=== PATIENT | male | born 1955 | race Caucasian/White ===

== ENCOUNTER 2023-11-15 10:58 | Emergency (ER) | payer MEDICARE, BC, SELFPAY ==
[2023-11-15 11:05] VITALS: BP 157/90
[2023-11-15 11:23] LABS: % Basophils 1.1 % (0-2); % Immature Granulocytes 0.2 % (0-0.5); % Lymphocytes 28.1 % (20.5-51.1); % Monocytes 13.8 % (1.7-9.3); % Neutrophils 53.8 % (42.2-75.2); Absolute Basophils 0.1 10^3/uL (0-0.2); Absolute Eosinophils 0.1 10^3/uL (0-0.7); Absolute Lymphocytes 1.3 10^3/uL (1.2-3.4); Absolute Monocytes 0.7 10^3/uL (0.1-0.6); Absolute Neutrophils 2.5 10^3/uL (1.4-6.5); Hematocrit 51.7 % (39.0-52.0); Hemoglobin 16.5 g/dL (13.0-18.0); Mean Corp Hgb Conc. 31.9 g/dL (33.0-37.0); Mean Corpuscular Hgb 28.2 pg (27.0-31.0); Mean Corpuscular Volume 88.2 fL (80.0-94.0); Mean Platelet Volume 8.9 fL (7.4-10.4); Nucleated Red Blood Cells % 0 % (-); Platelet Count 197 10^3/uL (130-400); Red Blood Cell Count 5.86 10^6/uL (4.70-6.10); Red Cell Dist. Width 13.2 % (11.5-14.5); White Blood Cell Count 4.7 10^3/uL (4.8-10.8)
[2023-11-15 11:43] LABS: ALT (SGPT) 57 U/L (0-50); AST (SGOT) 51 U/L (17-59); Albumin 4.4 g/dl (3.5-5.0); Alkaline Phosphatase 66 U/L (38-126); Blood Urea Nitrogen 16 mg/dl (9-20); Calcium 9.8 mg/dl (8.4-10.2); Carbon Dioxide 27 mmol/L (22-30); Chloride 101 mmol/L (98-107); Glucose 116 mg/dl (70-99); Potassium 4.4 mmol/L (3.5-5.1); Sodium 133 mmol/L (135-145); Total Bilirubin 0.8 mg/dl (0.2-1.3); eGFR > 60.00
--- NOTE | 2023-11-15 14:09 | ED.GENMED ---
History of Present Illness
General
Chief Complaint: Numbness
Source: patient
Time Seen by Provider: 11/15/23 13:43
Travel History
Have you had any contact with someone who has COVID-19?: No
Do you have any symptoms of coronavirus? Fever > 100 degrees, chills, cough, shortness of breath, sore throat, loss of taste or smell, muscle aches, or headache?: No
History of Present Illness
History of Present Illness:
68-year-old male with past medical history of hyperlipidemia and BPH presenting to the emergency department for evaluation after he has been getting worked up by his primary care provider as an outpatient due to lower extremity weakness that started
in his right foot about 2 or 3 months ago, left foot about 1 month ago. Patient's primary care provider ordered an MRI of the lumbar spine but over the last few days patient has experienced some urinary incontinence stating that he did not know
that he was urinating the bed until he woke up and this morning his told him he seemed very confused, not able to answer questions and patient forgot what day it was and was unable to remember until he looked at his phone. Patient also notes
that he seems to be urinating more frequently than he usually would. He decided to come to the ER today as he states he is not really sure what is happening. He does note in about a 4-month. He has fallen 3 times which is very atypical for him.
He notes that he is normally very active and otherwise healthy. He denies any headaches, visual changes, vomiting, focal weakness or numbness, chest pain or shortness of breath, abdominal pain.
Past History
Past History
ED Past Medical History: Hypercholesterolemia
ED Past Surgical History: Orthopedic
Social History
Tobacco: Non-smoker
Alcohol: Occasional
Drug: None
Personal:
Living: with family
Review of Systems
Review of Systems
All Other Systems: ROS reviewed and negative except as documented in HPI and ROS
Phy Exam
Physical Exam
Physical Exam:
GENERAL: Alert , in no apparent distress
EYE: Clear conjunctiva, pupils 3 mm bilateral
NECK: Supple
ENT: o/p clr, mmm.
CARDIAC: Regular rate and rhythm .
LUNGS: Clear breath sounds bilaterally, no acute respiratory distress, no wheezes/rales/rhonchi
ABDOMEN: Soft, without focal tenderness, no r/g, no cvat
NEUROLOGICAL: Alert and oriented, no focal neuro deficits, is ambulatory with steady gait however patient with short strides and somewhat slower
SKIN: Warm and dry, skin intact.
MUSCULOSKELETAL: No edema, well perfused.
PSYCH: Normal and appropriate interaction.
Scores
Heart Failure Risk
Heart Failure Risk Score: Not Applicable
Heart Score for Chest Pain Patients
STEMI patient?: Not applicable
Withdrawal Assessment of Alcohol
Withdrawal Assessment Completed?: Not applicable
Course
Orders/Labs/Results
Orders:
Orders
11/15/23 11:09
CT Head W/o Iv Contrast Urgent
Comment:
Reason For Exam: b/l leg numbness and intermit disoriented
11/15/23 11:13
Complete Blood Count/With Diff Urgent
Comprehensive Metabolic Panel Urgent
11/15/23 14:49
Urinalysis Reflex To Culture Urgent
Date Specimen was Collected: 11/15/23
Time Specimen was Collected: 14:48
Abnormal Lab Results
11/15/23
11:13
WBC 4.7 L 10^3/uL
(4.8-10.8)
MCHC 31.9 L g/dL
(33.0-37.0)
Absolute Monos (auto) 0.7 H 10^3/uL
(0.1-0.6)
Monocytes % 13.8 H %
(1.7-9.3)
Sodium 133 L mmol/L
(135-145)
Creatinine 0.6 L mg/dL
(0.7-1.3)
Glucose 116 H mg/dl
(70-99)
ALT 57 H U/L
(0-50)
11/15/23 11:13
11/15/23 11:13
Vital Signs
Initial and Last Documented VS:
Initial Vital Signs
Temp Pulse Resp BP Pulse Ox
98.3 F 85 16 157/90 98
11/15/23 11:05 11/15/23 11:05 11/15/23 11:05 11/15/23 11:05 11/15/23 11:05
Last Documented Vital Signs
Temp Pulse Resp BP Pulse Ox
98.3 F 85 16 157/90 98
11/15/23 11:05 11/15/23 11:05 11/15/23 11:05 11/15/23 11:05 11/15/23 11:05
MDM/Problems Addressed
Differential Diagnosis Includes:
UTI, BPH, hydrocephalus, electrolyte disturbance
MDM/Problems Addressed:
68-year-old male presenting emergency department for gait instability, urinary incontinence and today stated he was confused however patient is only here in the ER with himself he is able to give a good history. Mild hypertension noted in
triage. Triage ordered labs and patient also had a head CT ordered. Head CT was concerning for new finding of normal pressure hydrocephalus. I did perform a bladder scan at the bedside after patient had urinated which did not show any urinary
retention. Will discuss case with neurosurgery to help determine further treatment plan and disposition.
*Radiology
Radiology exam reviewed: radiology read reviewed
*Pulse Oximetry
Patient hypoxic: no
*Critical Care Note
Total Time (30-74mins, 75-104mins- exclusive of procedures): Not Applicable
Data Reviewed
Review of Other/Old Records Reveals: Labs and Records
Patient Management
Discussion with other providers: PCP and Revenue Inspector
Escalation/DeEscalation of care consider admission/obs:
I discussed the case with on-call neurosurgeon, Dr. Wilson, he states patient can follow-up with neurology as an outpatient and they can be consulted as needed. Neurology is aware and state that patient should call the office to schedule
follow-up. I also contacted patient's primary care provider who had sent the patient to the emergency department and discussed the findings. He will call the patient later tonight to go over further treatments and test needed. Patient feels
comfortable being discharged home. Aware of return precautions to the ER.
ED Attending Note
-
Portions of this chart may have been created with voice recognition software.� Occasional wrong word or��sound alike� substitutions may have occurred due to the inherent limitations of voice recognition software.
Discharge Plan
Departure
Patient Disposition: Home (Routine Discharge)
Date of Disposition: 11/15/23
Time of Disposition: 14:38
Patient with high blood pressure during this ER visit?: Yes
Discharge Problem:
Normal pressure hydrocephalus
Instructions: Hydrocephalus (DC)
Referrals:
Andrea Murray DO [Family Provider] -
Deshawn Wilson DO [Active] - (Neurosurgeon)
Andrea Dunlap MD [Active] - (Neurologist)
Interventions
Interventions:
*Risk Screen - Suicide Last Done: 11/15/23 15:03
*General Assessment Last Done: 11/15/23 15:03
*Neglect/Abuse Screening Last Done: 11/15/23 15:03
*ED COVID-19 Vaccine History Last Done: 11/15/23 15:03
*Nursing Disposition Last Done: 11/15/23 15:03
ED- Neurological Assessment Last Done: 11/15/23 14:59
Discharge Date and Time
Discharge Date/Time: 11/15/23 15:05
Print Language: SYRIAC
[2023-11-15 15:31] LABS: Urine Albumin Negative (Neg - Trace); Urine Bilirubin Negative (Negative); Urine Character Clear (Clear); Urine Color Yellow; Urine Glucose Negative (Negative); Urine Ketone Negative (Negative); Urine Leukocyte Negative (Negative); Urine Nitrite Negative (Negative); Urine Occult Blood Negative (Negative); Urine Urobilinogen Negative (Neg - 1+)
== END 2023-11-15 15:05 | disposition home or self-care (01) ==
LOC: EMR 10:58
PROVIDERS: Physician Assistant Medical; EMERGENCY PHYSICIAN Emergency Medicine; FAMILY PHYSICIAN Family Medicine
DX: G91.2 (Idiopathic) normal pressure hydrocephalus (principal); R03.0 Elevated blood-pressure reading, without diagnosis of hypertension; N40.1 Benign prostatic hyperplasia with lower urinary tract symptoms; R32 Unspecified urinary incontinence; E78.00 Pure hypercholesterolemia, unspecified; R26.89 Other abnormalities of gait and mobility; R41.0 Disorientation, unspecified
CPT/HCPCS: 99284; 70450; 80053; 81003; 85025

== ENCOUNTER → 2023-11-19 10:36 | Outpatient (REF) | payer MEDICARE, BC, SELFPAY | LOC: PAVMRI 10:36 | PROVIDERS: ATTENDING PHYSICIAN Physician Assistant Medical | DX: R29.898 Other symptoms and signs involving the musculoskeletal system (principal); R20.0 Anesthesia of skin; R20.2 Paresthesia of skin | CPT/HCPCS: 72148 ==

== ENCOUNTER → 2024-01-24 08:07 | Outpatient (REF) | payer MEDICARE, BC, SELFPAY | LOC: PAVMRI 08:07 | PROVIDERS: ATTENDING PHYSICIAN Psychiatry & Neurology Neurology; FAMILY PHYSICIAN Family Medicine | DX: G91.0 Communicating hydrocephalus (principal) | CPT/HCPCS: 70553; A9575 ==

== ENCOUNTER 2024-01-24 15:38 | Emergency (ER) | payer MEDICARE, BC, SELFPAY ==
[2024-01-24 15:53] VITALS: BP 149/92
[2024-01-24 16:33] VITALS: BMI 29.0
--- NOTE | 2024-01-24 16:35 | ED.CVA ---
History of Present Illness
General
Chief Complaint: CVA/TIA Symptoms
Time Seen by Provider: 01/24/24 16:26
Onset of Stroke Symptoms
Onset of symptoms known: No
Time pt last seen normal is known: No
Travel History
Have you had any contact with someone who has COVID-19?: No
Do you have any symptoms of coronavirus? Fever > 100 degrees, chills, cough, shortness of breath, sore throat, loss of taste or smell, muscle aches, or headache?: No
History of Present Illness
History of Present Illness:
68-year-old male presents to the emergency department for evaluation of abnormal MRI. Patient had an MRI this morning as a part of a workup for chronic ongoing balance issues with a suspicion for normal pressure hydrocephalus. The MRI was
originally ordered approximately 1 month ago. MRI revealed an acute infarct in the left anterior cerebellar hemisphere as well as an acute infarct in the periventricular medial left temporal lobe. Patient denies any acute change to his ongoing
balance issues, reports no chest pain, shortness of breath numbness, speech difficulty, vision changes. Does have history of hyperlipidemia for which he takes a statin.
Past History
Past History
ED Past Medical History: Hypercholesterolemia
ED Past Surgical History: Orthopedic
Social History
Tobacco: Non-smoker
Alcohol: Occasional
Drug: None
Personal:
Living: with family
Review of Systems
Review of Systems
Allergies reviewed?: Yes
All Other Systems: ROS reviewed and negative except as documented in HPI and ROS
Phy Exam
Physical Exam
Physical Exam:
GEN: Well appearing, NAD, WDWN
HEENT: Oral mucosa moist, no scleral icterus, no nasal congestion
Cardiac: Regular rate
Lung: No respiratory distress, no tachypnea
MSK: No gross deformity or injuries
Skin: Good color, no pallor or jaundice, no rashes
Neuro: AO x3; CN II-XII grossly intact. BUE strength 5/5 in all zavala, sensation intact and symmetric. BLE strength 5/5 in all zavala, sensation intact and symmetric
Psych: Calm, cooperative
Course
Orders/Labs/Results
Orders:
Orders
01/24/24 15:58
EKG [Electrocardiogram (*1)] Urgent
Reason for Study: TIA/Stroke
01/24/24 15:59
EKG- Treatment ONCE
01/24/24 16:50
Neck Angio w/wo Contrast CT [CT Neck Angio W/wo Iv Contrast] Urgent
Comment:
Reason For Exam: stroke
Aspirin 325 mg PO NOW STA
Clopidogrel Bisulfate [Plavix] 300 mg PO NOW STA
01/24/24 16:58
Complete Blood Count/With Diff Urgent
Comprehensive Metabolic Panel Urgent
Abnormal Lab Results
01/24/24
16:58
Absolute Monos (auto) 0.7 H 10^3/uL
(0.1-0.6)
Monocytes % 12.5 H %
(1.7-9.3)
Creatinine 0.6 L mg/dL
(0.7-1.3)
Glucose 104 H mg/dl
(70-99)
ALT 58 H U/L
(0-50)
01/24/24 16:58
01/24/24 16:58
Vital Signs
Initial and Last Documented VS:
Initial Vital Signs
Temp Pulse Resp BP Pulse Ox
98.3 F 70 18 149/92 96
01/24/24 15:53 01/24/24 15:53 01/24/24 15:53 01/24/24 15:53 01/24/24 15:53
Last Documented Vital Signs
Temp Pulse Resp BP Pulse Ox
98.3 F 77 19 143/91 98
01/24/24 15:53 01/24/24 17:39 01/24/24 17:39 01/24/24 18:29 01/24/24 16:33
MDM/Problems Addressed
MDM/Problems Addressed:
I reviewed the clinical course and imaging findings with neurology on-call who recommend we proceed with carotid imaging, due to the time of day we will obtain a CT angiogram of the neck. Given that this shows no signs of significant carotid
stenosis the patient be discharged on dual antiplatelet therapy for 21 days. He is already on a statin. Will follow-up as an outpatient with neurology for further discussion
Comment
Comment:
EKG independently interpreted by me shows normal sinus rhythm at a rate of [address] changes concerning for ischemia, significant patient motion in V1 limits interpretation
*Critical Care Note
Total Time (30-74mins, 75-104mins- exclusive of procedures): Not Applicable
ED Attending Note
-
Portions of this chart may have been created with voice recognition software.� Occasional wrong word or��sound alike� substitutions may have occurred due to the inherent limitations of voice recognition software.
Discharge Plan
Departure
Patient Disposition: Home (Routine Discharge)
Date of Disposition: 01/24/24
Time of Disposition: 18:15
Patient with high blood pressure during this ER visit?: No
Discharge Problem:
Acute stroke due to ischemia
Instructions: Stroke (DC)
Prescriptions:
New
aspirin 81 mg capsule
81 mg PO DAILY Qty: 30 0RF
clopidogrel [Plavix] 75 mg tablet
75 mg PO DAILY 21 Days Qty: 21 0RF
No Action
ibuprofen 200 mg Tablet
800 mg PO DAILYPRN PRN (Reason: strenuous outdoor activity)
rosuvastatin 10 mg Tablet
10 mg PO DAILY
Referrals:
Andrea Murray DO [Family Provider] -
Andrea Dunlap MD [Active] - Call in 1-3 days for appt
Activity Restrictions/Additional Instructions:
Follow-up with Dr. Kemp within the next 2 to 3 weeks
You will be taking aspirin and Plavix together for the next 21 days. Do not use any ehed-aoo-bevjyxk anti-inflammatory medications during this time due to increased bleeding risk, this includes ibuprofen/Advil/Motrin/naproxen/Aleve
Interventions
Interventions:
*Risk Screen - Suicide Last Done: 01/24/24 15:56
*General Assessment Last Done: 01/24/24 15:56
*Neglect/Abuse Screening Last Done: 01/24/24 15:56
ED- Fall Risk Assessment Last Done: 01/24/24 18:30
*ED COVID-19 Vaccine History Last Done: 01/24/24 16:33
*Nursing Disposition Last Done: 01/24/24 18:30
ED- Pulmonary Assessment Last Done: 01/24/24 16:33
ED- Neurological Assessment Last Done: 01/24/24 16:33
ED- Cardiac Assessment Last Done: 01/24/24 16:33
ED Swallowing Screen Last Done: 01/24/24 16:50
Discharge Date and Time
Discharge Date/Time: 01/24/24 18:30
Print Language: AZERI
[2024-01-24 17:00] VITALS: BP 132/82
[2024-01-24] MEDS: ASPIRIN 325 MG PO (17:05)
[2024-01-24] MEDS: PLAVIX 300 MG PO (17:06)
[2024-01-24 17:15] LABS: % Basophils 0.9 % (0-2); % Eosinophils 3.1 % (0-6); % Immature Granulocytes 0.2 % (0-0.5); % Lymphocytes 27.1 % (20.5-51.1); % Monocytes 12.5 % (1.7-9.3); % Neutrophils 56.2 % (42.2-75.2); Absolute Basophils 0.1 10^3/uL (0-0.2); Absolute Eosinophils 0.2 10^3/uL (0-0.7); Absolute Lymphocytes 1.5 10^3/uL (1.2-3.4); Absolute Monocytes 0.7 10^3/uL (0.1-0.6); Absolute Neutrophils 3.1 10^3/uL (1.4-6.5); Hematocrit 48.7 % (39.0-52.0); Hemoglobin 16.2 g/dL (13.0-18.0); Mean Corp Hgb Conc. 33.3 g/dL (33.0-37.0); Mean Corpuscular Hgb 28.6 pg (27.0-31.0); Mean Platelet Volume 9.5 fL (7.4-10.4); Nucleated Red Blood Cells % 0 % (-); Platelet Count 181 10^3/uL (130-400); Red Blood Cell Count 5.66 10^6/uL (4.70-6.10); Red Cell Dist. Width 13.6 % (11.5-14.5); White Blood Cell Count 5.5 10^3/uL (4.8-10.8)
[2024-01-24 17:22] LABS: ALT (SGPT) 58 U/L (0-50); AST (SGOT) 44 U/L (17-59); Albumin 4.2 g/dl (3.5-5.0); Blood Urea Nitrogen 16 mg/dl (9-20); Calcium 9.8 mg/dl (8.4-10.2); Carbon Dioxide 27 mmol/L (22-30); Chloride 101 mmol/L (98-107); Estimated Creatinine Clearance > 125 ml/min; Glucose 104 mg/dl (70-99); Potassium 4.8 mmol/L (3.5-5.1); Sodium 136 mmol/L (135-145); Total Bilirubin 0.6 mg/dl (0.2-1.3); Total Protein 6.5 g/dl (6.3-8.2); eGFR > 60.00
--- NOTE | 2024-01-24 17:22 | PHANOTE ---
01/24/2024, med rec tech, pt. stopped taking his Tamsulosin 0.4 mg 2-3 weeks ago per pt. because symptoms resolved.
[2024-01-24 17:56] LABS: Alkaline Phosphatase 57 U/L (38-126)
[2024-01-24 18:29] VITALS: BP 143/91
== END 2024-01-24 18:30 | disposition home or self-care (01) ==
LOC: EMR 15:38
PROVIDERS: EMERGENCY PHYSICIAN Emergency Medicine; FAMILY PHYSICIAN Family Medicine
DX: I63.89 Other cerebral infarction (principal); E78.00 Pure hypercholesterolemia, unspecified
CPT/HCPCS: 99285; 70498; 80053; 85025; 93005; Q9967

== ENCOUNTER 2024-02-02 08:17 | Outpatient (RCR) | payer MEDICARE, BC, SELFPAY | END 2024-02-13 08:18 | disposition home or self-care (01) | LOC: RPT 08:17 | PROVIDERS: ATTENDING PHYSICIAN Psychiatry & Neurology Neurology; FAMILY PHYSICIAN Family Medicine | DX: G91.0 Communicating hydrocephalus (principal); Z73.6 Limitation of activities due to disability; R20.0 Anesthesia of skin | CPT/HCPCS: 97162; 97167 ==

== ENCOUNTER 2024-02-16 08:19 | Outpatient (RCR) | payer MEDICARE, BC, SELFPAY | END 2024-02-16 23:59 | disposition home or self-care (01) | LOC: RPT 08:19 | PROVIDERS: ATTENDING PHYSICIAN Psychiatry & Neurology Neurology; FAMILY PHYSICIAN Family Medicine | DX: G91.0 Communicating hydrocephalus (principal) | CPT/HCPCS: 97164; 97168 ==

== ENCOUNTER → 2024-02-16 11:27 | Outpatient (REF) | payer MEDICARE, BC, SELFPAY ==
[2024-02-16 11:52] VITALS: BP 155/94; BP_SYST 77
[2024-02-16 12:51] LABS: INR 1.02; PT 13.4 Sec (11.4-14.6)
[2024-02-16 14:10] VITALS: BP 139/90; BP_SYST 70
[2024-02-16 14:59] LABS: Spinal Fluid Glucose 77 mg/dl (40-70); Spinal Fluid Protein 55 mg/dl (12-60)
[2024-02-16 15:55] LABS: CSF Clarity Clear; CSF Color Colorless; CSF Tube # 4; White Cell Count/CSF 1 mm^3 (0-5)
[2024-02-16 15:56] LABS: Red Cell Count/CSF 6 mm^3
[2024-02-19 02:29] LABS: CSF VDRL (T. pallidum) Non Reactive (Non Reactive)
== END ==
LOC: RADI 11:27
PROVIDERS: ATTENDING PHYSICIAN Psychiatry & Neurology Neurology
DX: G91.2 (Idiopathic) normal pressure hydrocephalus (principal); Z79.01 Long term (current) use of anticoagulants
CPT/HCPCS: 36415; 62328; 82945; 84157; 85610; 86592; 88108; 89051

== ENCOUNTER → 2024-04-05 10:32 | Outpatient (REF) | payer MEDICARE, BC, SELFPAY | LOC: DHSLP 10:32 | PROVIDERS: ATTENDING PHYSICIAN Psychiatry & Neurology Neurology; FAMILY PHYSICIAN Family Medicine | DX: G47.33 Obstructive sleep apnea (adult) (pediatric) (principal) | CPT/HCPCS: 95806 ==

== ENCOUNTER 2024-10-20 10:54 | Day surgery (SDC) | payer MEDICARE, BC, SELFPAY ==
--- NOTE | 2024-10-20 13:37 | ITS.CL.IMPLP ---
Recruitment Assistant - Implant Loop
Implant Loop
Procedure Report:
Date of Procedure: October 20, 2024.
Procedure: Insertable Loop Recorder Implant.
Indication: Embolic stroke of unknown source.
Performing physician: Augustus Barba MD, [facility].
Implant: [employer]onic; Reveal LINQII; Model# [id number]; Serial# [id number].
Technique: The patient was prepped and draped in the usual fashion. A time-out was performed. No intravenous sedation was administered. Local anesthetic was applied to the left pre-pectoral subcutaneous tissue. Using the insertion kit an incision
was made left of the midline in the fourth intercostal space and the device was implanted subcutaneously and directed towards the nipple. Hemostasis was excellent. The skin was closed with steri-strips. There was no blood loss. There were no
complications. No fluoroscopy. R waves measured 0.33 mV and P waves were visible.
Final Programming: Detections: Afib, tachy at 160 bpm, rika at 30 bpm, pause at 3 sec.
Conclusion: Uncomplicated insertable loop implant.
Recommendation: Routine post-insertable loop care. The device is MRI conditional without a waiting period and up to 3 Jeannine.
cc: Vijay Salvador MD; Andrea Dunlap MD, and Remigio Mike DO.
== END 2024-10-20 12:22 | disposition home or self-care (01) ==
LOC: CATH 10:54
PROVIDERS: ATTENDING PHYSICIAN Internal Medicine Cardiovascular Disease; FAMILY PHYSICIAN Family Medicine; OTHER PHYSICIAN Internal Medicine Cardiovascular Disease
DX: Z09 Encounter for follow-up examination after completed treatment for conditions other than malignant neoplasm (principal); Z86.73 Personal history of transient ischemic attack (TIA), and cerebral infarction without residual deficits; Z79.82 Long term (current) use of aspirin; Z79.84 Long term (current) use of oral hypoglycemic drugs
CPT/HCPCS: 33285; C1764

== ENCOUNTER 2024-11-08 12:41 | Inpatient (IN) | payer MEDICARE, BC, SELFPAY ==
[2024-11-08 09:20] VITALS: BP 167/94
--- NOTE | 2024-11-08 10:11 | ED.GENMED ---
History of Present Illness
General
Chief Complaint: Dizziness
Source: patient and spouse
Exam Limitations: none
Time Seen by Provider: 11/08/24 09:45
History of Present Illness
History of Present Illness:
69yoM with a history of prior CVA, hydrocephalus, type 2 diabetes, hypertension, and hyperlipidemia presenting with his for evaluation of dizziness. Patient has been having intermittent episodes of dizziness over the past 3 days. Symptoms
seem to occur around 5:30 PM at nighttime when he is sitting at the table. He reports feeling like his head is spinning. Symptoms are fairly severe and lasts about 30 minutes before resolving. He had some vomiting during his dizzy episode 3 days
ago. He woke up this morning feeling disoriented and he wet the bed. states he was asking random questions such as what day it was. His disorientation prompted him to come to the ED for evaluation. Patient is currently feeling better. He
denies any current dizziness. He does have a mild headache. He denies any ear pain, hearing loss, tinnitus, chest pain, shortness of breath. No recent illnesses. Patient had an MRI brain in January 2024 which showed multiple strokes as well as
moderate to severe dilatation of the ventricular system. He was seen by neurosurgery and shunt was not recommended. He has been following with Dr. Dunlap.
Past History
Past History
ED Past Medical History: Hypercholesterolemia
ED Past Surgical History: Orthopedic
Social History
Tobacco: Non-smoker
Alcohol: Occasional
Drug: None
Personal:
Living: with family
Phy Exam
General Physical Exam
General Presentation: well appearing and no apparent distress
General age: appears stated age
General Skin: warm and dry
General Habitus: normal
General Mental: alert
ENT Exam
ENT Exam: TM's normal and normocephalic
Eye Exam
Eye Exam: PERRL and EOMI
Cardiovascular Exam
Cardiovascular Exam: regular rate/rhythm
Pulmonary Exam
Pulmonary Exam: lungs clear, no respiratory distress, no rales, no crackles and no rhonchi
Neurological Exam
Neurological Exam: alert and other (Oriented to person and place. Able to state year but does not recall month. CN 2-12 intact. PERRL. EOMs intact. 5/5 strength in all extremities. Normal finger to nose and heel to cazares bilaterally. )
Skin Exam
Skin Exam: normal color and warm/dry
Psychiatric Exam
Psychiatric Exam: normal mood/affect
Course
Orders/Labs/Results
Orders:
Orders
11/08/24 09:25
Electrocardiogram (*1) Urgent
Reason for Study: Vertigo / Dizzy
EKG- Treatment ONCE
11/08/24 10:05
Cardiac Monitoring- Treatment ONCE
11/08/24 10:06
CT Head W/o Iv Contrast Urgent
Comment:
Reason For Exam: dizziness, confusion
11/08/24 10:49
Complete Blood Count/With Diff Urgent
Comprehensive Metabolic Panel Urgent
TSH Reflex To Free T4 Urgent
Troponin I Urgent
Urinalysis Reflex To Culture Urgent
Date Specimen was Collected: 11/08/24
Time Specimen was Collected: 10:30
11/08/24 12:34
Admit/Transfer Patient As Directed
Co-Sign Provider:
Level of Care: Inpatient admission
Assign to:: Telemetry
Physician / Group: jesus
Diagnosis: vertigo
Reason for Telemetry: Arrhythmia
Date to Stop Telemetry: 11/11/24
Time to Stop Telemetry: 11:00
Reason for Hospitalization: vertigo
Expected length of stay greater than two midnights?: Yes
ELOS- Estimated Length of Stay in days: 2
I certify the patient meets the requirements for IP care: Yes
Code Status As Directed
Resuscitation Status: Full Code
PRN Pain Medication Management As Directed
May give lesser potent ordered pain med per pt: Yes
preference::
Protocol:: Medication orders for pain may be administered in a
manner that supports deferring to patient preference
when the pt is:
- Requesting an ordered lesser potent pain medication.
Least to most potent pain medications are defined
as: acetaminophen < NSAID < tramadol < opioids
(morphine, oxycodone, hydromorphone).
- Requesting a lesser dose of the same medication IF
ORDERED.
- Requesting a less intrusive route of administration
if both routes are prescribed by the provider (PO <
IV).
11/11/24 11:00
DC Protocol for Telemetry ONCE
Abnormal Lab Results
11/08/24
10:49
WBC 4.3 L 10^3/uL
(4.8-10.8)
RBC 6.27 H 10^6/uL
(4.70-6.10)
Hct 54.2 H %
(39.0-52.0)
MCHC 32.8 L g/dL
(33.0-37.0)
Absolute Lymphs (auto) 0.9 L 10^3/uL
(1.2-3.4)
Monocytes % 10.1 H %
(1.7-9.3)
Creatinine 0.6 L mg/dL
(0.7-1.3)
Glucose 107 H mg/dl
(70-99)
Calcium 10.5 H mg/dl
(8.4-10.2)
ALT 58 H U/L
(0-50)
11/08/24 10:49
11/08/24 10:49
Vital Signs
Initial and Last Documented VS:
Initial Vital Signs
Temp Pulse Resp BP Pulse Ox
98.5 F 83 16 167/94 96
11/08/24 09:20 11/08/24 09:20 11/08/24 09:20 11/08/24 09:20 11/08/24 09:20
Last Documented Vital Signs
Temp Pulse Resp BP Pulse Ox
98.5 F 87 16 152/92 94
11/08/24 09:20 11/08/24 13:44 11/08/24 13:44 11/08/24 13:44 11/08/24 13:44
MDM/Problems Addressed
Differential Diagnosis Includes:
69yoM here with intermittent dizziness x 3 days. Woke up this morning disoriented and wet the bed. Hx of CVA and hydrocephalus. C/o mild headache. He is mildly hypertensive with otherwise normal vitals. He does not know the month but answers other
orientation questions correctly. No focal neuro deficits noted. Differential diagnosis includes but is not limited to: peripheral vertigo, CVA, normal pressure hydrocephalus, UTI
Initial ED plan: Check cardiac labs, EKG, UA, and CT head.
*EKG
Interpreted by ED Provider?: Yes
EKG Intrepretation Date: 11/08/24
Heart Rate: 80
Rate: normal
Rhythm: sinus
Roy: normal axis
Interval: normal interval
Ischemia: T-wave inversion (V2-V3)
*Critical Care Note
Total Time (30-74mins, 75-104mins- exclusive of procedures): Not Applicable
Update Note
Update Note:
Labs overall unremarkable. UA bland without signs of infection. CT head is negative for acute findings. Ventriculomegaly is stable. Unclear etiology of symptoms, possibly related to normal pressure hydrocephalus. Will admit for further
evaluation and management.
ED Attending Note
-
Portions of this chart may have been created with voice recognition software.� Occasional wrong word or��sound alike� substitutions may have occurred due to the inherent limitations of voice recognition software.
Discharge Plan
Departure
Patient Disposition: Admit
Date of Disposition: 11/08/24
Time of Disposition: 12:16
Presentation/result/management discussed w/ accepting MD/DO: Hospitalist
Discharge Problem:
Acute encephalopathy, Vertigo
Interventions
Interventions:
*Risk Screen - Suicide Last Done: 11/08/24 09:20
*General Assessment Last Done: 11/08/24 09:20
*Neglect/Abuse Screening Last Done: 11/08/24 13:44
*ED- Fall Risk Assessment Last Done: 11/08/24 13:38
*ED COVID-19 Vaccine History Last Done: 11/08/24 09:20
ED- Neurological Assessment Last Done: 11/08/24 09:58
ED- Cardiac Assessment Last Done: 11/08/24 09:58
ED Swallowing Screen Last Done: 11/08/24 09:58
[2024-11-08 11:09] LABS: % Basophils 0.9 % (0-2); % Eosinophils 2.3 % (0-6); % Lymphocytes 20.5 % (20.5-51.1); % Monocytes 10.1 % (1.7-9.3); % Neutrophils 66.2 % (42.2-75.2); Absolute Eosinophils 0.1 10^3/uL (0-0.7); Absolute Lymphocytes 0.9 10^3/uL (1.2-3.4); Absolute Monocytes 0.4 10^3/uL (0.1-0.6); Absolute Neutrophils 2.9 10^3/uL (1.4-6.5); Hematocrit 54.2 % (39.0-52.0); Hemoglobin 17.8 g/dL (13.0-18.0); Mean Corp Hgb Conc. 32.8 g/dL (33.0-37.0); Mean Corpuscular Hgb 28.4 pg (27.0-31.0); Mean Corpuscular Volume 86.4 fL (80.0-94.0); Nucleated Red Blood Cells % 0 % (-); Platelet Count 166 10^3/uL (130-400); Red Blood Cell Count 6.27 10^6/uL (4.70-6.10); Red Cell Dist. Width 13.8 % (11.5-14.5); White Blood Cell Count 4.3 10^3/uL (4.8-10.8)
[2024-11-08 11:23] LABS: ALT (SGPT) 58 U/L (0-50); AST (SGOT) 50 U/L (17-59); Alkaline Phosphatase 53 U/L (38-126); Blood Urea Nitrogen 14 mg/dl (9-20); Calcium 10.5 mg/dl (8.4-10.2); Carbon Dioxide 28 mmol/L (22-30); Chloride 102 mmol/L (98-107); Glucose 107 mg/dl (70-99); Potassium 4.4 mmol/L (3.5-5.1); Sodium 139 mmol/L (135-145); Total Bilirubin 0.9 mg/dl (0.2-1.3); Total Protein 7.4 g/dl (6.3-8.2); eGFR > 60.00
[2024-11-08 11:34] LABS: Troponin I < 0.012 ng/ml
[2024-11-08 11:39] LABS: Urine Albumin Negative (Neg - Trace); Urine Bilirubin Negative (Negative); Urine Character Clear (Clear); Urine Color Yellow; Urine Glucose Negative (Negative); Urine Ketone Negative (Negative); Urine Leukocyte Negative (Negative); Urine Nitrite Negative (Negative); Urine Occult Blood Negative (Negative); Urine Specific Gravity 1.015 (<1.030); Urine Urobilinogen Negative (Neg - 1+); Urine pH 6.5 (5.0-9.0)
[2024-11-08 11:53] LABS: TSH Reflex To Free T4 1.89 uIU/ml (0.47-4.68)
--- NOTE | 2024-11-08 12:47 | HPS.HSE ---
Family Physician
-
Family Physician: Remigio Aaron,
Chief Complaint
-
vertigo
History of Present Illness
69-year-old male past medical history of prior CVA a few years ago, hydrocephalus, type 2 diabetes, hypertension, hyperlipidemia, presenting with vertigo. He has been having intermittent episodes of dizziness for the past 2 days. Symptoms seem to
occur at 5:30 PM at nighttime when he is sitting at the table described as head spinning. Symptoms are fairly severe and last about 30 minutes before resolving. He has had some vomiting with episode 3 days ago. He woke up this morning feeling
disoriented and had incontinence. states that he was asking random questions such as what day it is. His disorientation prompted him to come to the emergency room. He is currently feeling better. Denies any current symptoms. He has a mild
headache. He denies any ear pain, hearing loss, tinnitus, chest pain, shortness of breath or recent illness.
He has been having occasional balance issues with ambulation. No recent falls.
He had MRI in January 2024 which showed multiple strokes as well as moderate to severe dilatation of the ventricular system. He had LP in February. He was seen by neurosurgery and shunt was not recommended.
He used to drink a significant amount of alcohol but only drinks 1 cocktail per day now. Denies smoking.
No family history of neurological problems.
Medical History
Past Medical History
Past Medical History: Reports Other (prior CVA a few years ago, hydrocephalus, type 2 diabetes, hypertension, hyperlipidemia,)
Past Surgical History: Reports None
Social History
Tobacco: Non-smoker
Alcohol: None
Drug: None
Family History
Family History: Not pertinent
Allergies / Home Medications
Allergies reflects when Allergies were last updated in [facility].
Home Medications with original date entered in [facility]
Allergy/Medication List:
Allergies
Allergy/AdvReac Type Severity Reaction Status Date / Time
No Known Allergies Allergy Verified 11/08/24 09:24
Home Medications
cholecalciferol (vitamin D3) 50 mcg (2,000 unit) capsule (Vitamin D3) 50 mcg PO DAILY 10/20/24
glipizide 5 mg tablet 5 mg PO DAILY 10/20/24
acetaminophen 325 mg tablet (Tylenol) 650 mg PO DAILYPRN PRN lower back apins 11/08/24
aspirin 81 mg tablet,delayed release 81 mg PO DAILY 11/08/24
cyanocobalamin (vitamin B-12) 1,000 mcg tablet 1,000 mcg PO DAILY 11/08/24
sildenafil 100 mg tablet 100 mg PO DAILYPRN PRN ed 11/08/24
Review of Systems
-
Constitutional: Reports No Symptoms
EENT: Reports No Symptoms
Respiratory: Reports No Symptoms
Cardiac: Reports No Symptoms
Abdomen/GI: Reports No Symptoms
: Reports No Symptoms
Musculoskeletal: Reports No Symptoms
Skin: Reports No Symptoms
Neurological: Reports No Symptoms
Endocrine: Reports No Symptoms
Hematologic/Lymphatic: Reports No Symptoms
Psych: Reports No Symptoms
Physical Exam
Vital Signs
Vital Signs
Temp Pulse Resp BP Pulse Ox
98.5 F 83 16 167/94 96
11/08/24 09:20 11/08/24 09:20 11/08/24 09:20 11/08/24 09:20 11/08/24 09:20
Physical Exam
General: Well Developed, Well Nourished and No Apparent Distress
HEENT: NormoCephalic, Moist mucous membranes and Atraumatic
Respiratory: Clear
Cardiac: S1/S2 and Regular Rhythm; No Murmur or Rub
GI: Soft, Non Tender, Non Distended and Normal Bowel Sounds; No Organomegaly
Rectal: Deferred by Provider
Musculoskeletal: No Clubbing, No Cyanosis and No Edema
Skin: No Rash
Neuro: Nonfocal/grossly intact
Laboratory Results
-
11/08/24 10:49
11/08/24 10:49
Laboratory Results
Total Bilirubin 0.9 mg/dl (0.2-1.3) 11/08/24 10:49
AST 50 U/L (17-59) 11/08/24 10:49
ALT 58 U/L (0-50) H 11/08/24 10:49
Alkaline Phosphatase 53 U/L (38-126) 11/08/24 10:49
Troponin I < 0.012 ng/ml 11/08/24 10:49
Data Reviewed
-
Lab Data: Labs Reviewed by me
Old Records: Reviewed
Impression/Plan
-
IMPRESSION:
PLAN:
# Recurrent vertigo episodes concerning for worsening normal pressure hydrocephalus versus BPPV versus less likely recurrent strokes
# History of normal pressure hydrocephalus with LP in February
-Check orthostatic vital signs
-Check MRI brain
-Check B12, TSH
-Neurology consulted
-Patient had LP in February
-neurosurgery previously recommended against shunt
History of prior CVA
-Continue aspirin
Type 2 diabetes
-Hold glipizide
-Insulin sliding scale
Essential hypertension
Hyperlipidemia
Daily alcohol use
Full code
DVT prophylaxis�SCDs
Regular diet
--- NOTE | 2024-11-08 12:47 | CON.NEURO ---
Consultation
Order
Date of Consultation: 11/08/24
Requesting Provider: Vickie Leon PA-C
Reason for Consult: Vertigo, encephalopathy
Neurology Consultation Note.
HPI: This is a 69-year-old man who presented to [facility] on 11/08/2024 with confusion and vertigo.
According to the patient the past two evenings, around 5 o'clock, while sitting at the kitchen table at rest, he experienced severe spinning sensation. Each episode lasted approximately 5-10 minutes, accompanied by mild nausea. The patient denies
associated motor, sensory visual changes, ear pain, tinnitus, headaches, or recent medication changes. The patient also mentions waking up at 2 AM with a spinning sensation and vomiting.
Mr. Martinez has been under care of neurology and had workup for ventriculomegaly. He was deemed not to be a candidate for CUTTING AND PRINTING MACHINE OPERATOR shunt.
The patient reportedly recently had repeat neuropsychological evaluation. I do not have a results at the time of the interview.
ER VS: 167/94, 83, afebrile, 96 on room air
EKG:NSR, QTc Int : 470 ms
PDMP:none
Labs: WBCs�4.3, hematocrit�54.2, glucose�107, normal sodium, creatinine, TSH, troponin, B12�730, normal TSH.
CT head wo contrast�severe atrophy for age, ventriculomegaly, stable since 11/15/2023
Mr. Chanel under care of neurology. He has had had workup for ventriculomegaly. He was told that he is not a candidate for CUTTING AND PRINTING MACHINE OPERATOR shunt.
Patient was diagnosed with left PICA/CITY SOLICITOR/SCA embolic stroke in 12/2023 after he presented with confusion and urinary incontinence. Stroke workup was unrevealing to date. ILR was placed on 10/20/2024.
PMH: L PICA/CITY SOLICITOR/SCA stroke(12/2023), HTN, DLP, DM, BPH
PSH: ILR(10/20/2024), tonsillectomy, R THR
SH: , non-smoker, occasional alcohol use; retired from sales
FH: mother from colon cancer at the age of 58, mother at 82
All:NKDA
ROS: Constitutional: Negative. Negative for chills, fever and unexpected weight change.
HENT: Positive for vertigo
Eyes: Negative. Negative for photophobia, pain and visual disturbance.
Respiratory: Negative for cough, choking and shortness of breath.
Cardiovascular: Negative for chest pain, palpitations and leg swelling.
Gastrointestinal: Negative for abdominal pain and vomiting.
Endocrine: Negative. Negative for cold intolerance.
Genitourinary: Negative for dysuria, flank pain and urgency.
Musculoskeletal: Negative for back pain, gait problem, neck pain and neck stiffness.
Skin: Negative for rash.
Allergic/Immunologic: Negative. Negative for immunocompromised state.
Neurological: Positive for confusion, imbalance
Psychiatric/Behavioral: Negative for behavioral problems, confusion and hallucinations.
General: Well developed. In no acute distress.
Cardio: Regular rate and rhythm without murmur. Extremities are without cyanosis or edema.
Neuro:
Mental Status: Alert, oriented to person, place, year, month, day, not date. Impaired attention. Unable to do serial sevens. Delayed recall is impaired. Follows complex requests across midline. Fluent.
Cranial Nerves: Pupils are equally round and reactive to light. EOMs full. Visual zavala full to confrontation. No ptosis. No nystagmus. V1-V3 intact to light touch and pinprick bilaterally, symmetric. Face symmetric. Normal hearing AU. The
palate elevated well. SCMs and traps 5/5. Tongue midline. No dysarthria.
Motor: Normal bulk and tone. No pronator or arm drift. Strength 5/5 throughout. No clonus.
Reflexes: Negative grasp bilaterally
Sensory: Reduced vibration at the toes and ankles.
Coordination: No dysmetria or tremor.
Gait: deferred
Assessment and Plan:
I. Probable BPPV
II. Encephalopathy (vascular, neurodegenerative?)
III. History of L PICA/CITY SOLICITOR/SCA stroke(12/2023)
IV. Polyneuropathy
-Continue Telemetry monitoring
-Brain MRI without morelia
-Continue aspirin 81 mg once a day
-Cardiology follow-up.
-Medication administration supervision
-PT OT
-LDL, polyneuropathy blood work
-Meclizine 25 mg every 8 hours as needed
-DVT prophylaxis.
I personally reviewed all radiology and labs along with past medical records pertinent to current medical problems. Total time spent in patient care is 60 minutes.
Thank you for allowing us to participate in the care of this patient. We will continue to follow. Please do not hesitate to contact us with any questions or concerns.
Subjective/Objective
Subjective Data
Date of Service: November 08, 2024
Objective Data
Vital Signs
Temp Pulse Resp BP Pulse Ox
36.9 C 83 16 167/94 96
11/08/24 09:20 11/08/24 09:20 11/08/24 09:20 11/08/24 09:20 11/08/24 09:20
Lab Results
11/08/24 10:49
11/08/24 10:49
Sodium 139 mmol/L (135-145) 11/08/24 10:49
Potassium 4.4 mmol/L (3.5-5.1) 11/08/24 10:49
BUN 14 mg/dl (9-20) 11/08/24 10:49
Glucose 107 mg/dl (70-99) H 11/08/24 10:49
Calcium 10.5 mg/dl (8.4-10.2) H 11/08/24 10:49
Patient Allergies
No Known Allergies Allergy (Verified 11/08/24 09:24)
Medications
-
Home Medications
�Medication �Instructions �Recorded
cholecalciferol (vitamin D3) 50 50 mcg PO DAILY 10/20/24
mcg (2,000 unit) capsule (Vitamin
D3)
glipizide 5 mg tablet 5 mg PO DAILY 10/20/24
acetaminophen 325 mg tablet 650 mg PO DAILYPRN PRN lower back 11/08/24
(Tylenol) apins
aspirin 81 mg tablet,delayed 81 mg PO DAILY 11/08/24
release
cyanocobalamin (vitamin B-12) 1,000 mcg PO DAILY 11/08/24
1,000 mcg tablet
sildenafil 100 mg tablet 100 mg PO DAILYPRN PRN ed 11/08/24
Vital Signs and Labs
-
Vital Signs and Labs:
Vital Signs
Temp Pulse Resp BP Pulse Ox
36.9 C 83 16 167/94 96
11/08/24 09:20 11/08/24 09:20 11/08/24 09:20 11/08/24 09:20 11/08/24 09:20
Lab Results
11/08/24 10:49
11/08/24 10:49
Sodium 139 mmol/L (135-145) 11/08/24 10:49
Potassium 4.4 mmol/L (3.5-5.1) 11/08/24 10:49
BUN 14 mg/dl (9-20) 11/08/24 10:49
Glucose 107 mg/dl (70-99) H 11/08/24 10:49
Calcium 10.5 mg/dl (8.4-10.2) H 11/08/24 10:49
Home Medications
-
Home Medications
cholecalciferol (vitamin D3) 50 mcg (2,000 unit) capsule (Vitamin D3) 50 mcg PO DAILY 10/20/24
glipizide 5 mg tablet 5 mg PO DAILY 10/20/24
acetaminophen 325 mg tablet (Tylenol) 650 mg PO DAILYPRN PRN lower back apins 11/08/24
aspirin 81 mg tablet,delayed release 81 mg PO DAILY 11/08/24
cyanocobalamin (vitamin B-12) 1,000 mcg tablet 1,000 mcg PO DAILY 11/08/24
sildenafil 100 mg tablet 100 mg PO DAILYPRN PRN ed 11/08/24
[2024-11-08 13:43] VITALS: BMI 28.8
[2024-11-08 13:44] VITALS: BP 152/92
[2024-11-08 14:09] VITALS: BMI 28.3
[2024-11-08 14:15] VITALS: BP 162/86
[2024-11-08 14:42] VITALS: BP 133/80; BP 154/76; BP 158/80; PULSE 106; PULSE 82; PULSE 86
--- NOTE | 2024-11-08 14:47 | PTCARENOTE ---
Pt. arrived to 3W around 1400. Pt. walked from the stretcher to the bed. Oriented to room. Ongoing plan of care in progress.
[2024-11-08 15:29] LABS: TSH Reflex To Free T4 1.52 uIU/ml (0.47-4.68)
[2024-11-08 15:47] LABS: Vitamin B12 730 pg/ml (239-931)
[2024-11-08 16:46] LABS: Glucose - Point of Care 112 mg/dl (70-99)
[2024-11-08 17:33] LABS: HDL Cholesterol 62 mg/dl; LDL Cholesterol, Calculated 60 mg/dl; Total Cholesterol 164 mg/dl (50-199); Triglyceride 210 mg/dl (10-149); Very Low Density Lipoprotein 42 mg/dl (0-30)
[2024-11-08 19:30] VITALS: BP 145/79
[2024-11-08 21:53] LABS: Glucose - Point of Care 107 mg/dl (70-99)
[2024-11-08 23:30] VITALS: BP 137/84
[2024-11-09 03:55] VITALS: BP 153/86
[2024-11-09 07:19] LABS: % Basophils 0.9 % (0-2); % Eosinophils 2.4 % (0-6); % Immature Granulocytes 0.2 % (0-0.5); % Lymphocytes 25.9 % (20.5-51.1); % Neutrophils 58.6 % (42.2-75.2); Absolute Eosinophils 0.1 10^3/uL (0-0.7); Absolute Lymphocytes 1.2 10^3/uL (1.2-3.4); Absolute Monocytes 0.6 10^3/uL (0.1-0.6); Absolute Neutrophils 2.7 10^3/uL (1.4-6.5); Hematocrit 51.3 % (39.0-52.0); Hemoglobin 17.1 g/dL (13.0-18.0); Mean Corp Hgb Conc. 33.3 g/dL (33.0-37.0); Mean Corpuscular Hgb 28.5 pg (27.0-31.0); Mean Corpuscular Volume 85.6 fL (80.0-94.0); Mean Platelet Volume 9.2 fL (7.4-10.4); Nucleated Red Blood Cells % 0 % (-); Platelet Count 169 10^3/uL (130-400); Red Blood Cell Count 5.99 10^6/uL (4.70-6.10); Red Cell Dist. Width 13.5 % (11.5-14.5); White Blood Cell Count 4.7 10^3/uL (4.8-10.8)
[2024-11-09 07:30] LABS: ALT (SGPT) 49 U/L (0-50); AST (SGOT) 39 U/L (17-59); Albumin 4.1 g/dl (3.5-5.0); Alkaline Phosphatase 52 U/L (38-126); Blood Urea Nitrogen 14 mg/dl (9-20); Calcium 10.1 mg/dl (8.4-10.2); Carbon Dioxide 27 mmol/L (22-30); Chloride 104 mmol/L (98-107); Estimated Creatinine Clearance > 125 ml/min; Glucose 128 mg/dl (70-99); Potassium 4.6 mmol/L (3.5-5.1); Sodium 137 mmol/L (135-145); Total Bilirubin 0.8 mg/dl (0.2-1.3); Total Protein 6.4 g/dl (6.3-8.2); eGFR > 60.00
[2024-11-09 08:03] LABS: Glucose - Point of Care 144 mg/dl (70-99)
[2024-11-09] MEDS: VITAMIN D3 (cholecalciferol) 50 MCG PO (08:42)
[2024-11-09] MEDS: VITAMIN B-12 1000 MCG PO (08:42)
[2024-11-09] MEDS: ASPIR LOW (ENTERIC COATED) 81 MG PO (08:42)
--- NOTE | 2024-11-09 09:12 | W.PN.NEURO.1 ---
Today's Communication / Plan
-
.
Subjective/Objective
Subjective Data
Date of Service: November 09, 2024
Neurology follow-up note.
Mr. Cleveland reports no complaints. No reports of recurrent vertigo. Patient denies having headaches, change in vision, strength or sensation.
Brain MRI showed no acute infarct.
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
PSH: ILR(10/20/2024), tonsillectomy, R THR
SH: , non-smoker, occasional alcohol use; retired from sales
FH: mother from colon cancer at the age of 58, mother at 82
All:NKDA
ROS: Constitutional: Negative. Negative for chills, fever and unexpected weight change.
HENT: Positive for vertigo
Eyes: Negative. Negative for photophobia, pain and visual disturbance.
Respiratory: Negative for cough, choking and shortness of breath.
Cardiovascular: Negative for chest pain, palpitations and leg swelling.
Gastrointestinal: Negative for abdominal pain and vomiting.
Endocrine: Negative. Negative for cold intolerance.
Genitourinary: Negative for dysuria, flank pain and urgency.
Musculoskeletal: Negative for back pain, gait problem, neck pain and neck stiffness.
Skin: Negative for rash.
Allergic/Immunologic: Negative. Negative for immunocompromised state.
Neurological: Positive for confusion, imbalance
Psychiatric/Behavioral: Negative for behavioral problems, confusion and hallucinations.
General: Well developed. In no acute distress.
Cardio: Regular rate and rhythm without murmur. Extremities are without cyanosis or edema.
Neuro:
Mental Status: Alert, oriented to person, place, year, month, day, not date. Impaired attention. Unable to do serial 7s Delayed recall is impaired. Follows complex requests across midline. Fluent.
Cranial Nerves: Pupils are equally round and reactive to light. EOMs full. Visual zavala full to confrontation. No ptosis. No nystagmus. V1-V3 intact to light touch and pinprick bilaterally, symmetric. Face symmetric. Normal hearing AU. The
palate elevated well. SCMs and traps 5/5. Tongue midline. No dysarthria.
Motor: Normal bulk and tone. No pronator or arm drift. Strength 5/5 throughout. No clonus.
Reflexes: Negative grasp bilaterally
Sensory: Reduced vibration at the toes and ankles.
Coordination: No dysmetria or tremor.
Gait: deferred
Assessment and Plan:
I. Probable BPPV
II. Encephalopathy (vascular, neurodegenerative?)
III. 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
IV. Polyneuropathy
-Continue Telemetry monitoring
-Continue aspirin 81 mg once a day
-Medication administration supervision
-Driving safety evaluation
-Would consider amyloid brain PET scan
-Follow-up requested serologies
-Meclizine 25 mg every 8 hours as needed
-DVT prophylaxis.
-Outpatient neurology follow-up
I personally reviewed all radiology and labs along with past medical records pertinent to current medical problems. Total time spent in patient care is 60 minutes.
Thank you for allowing us to participate in the care of this patient. We will continue to follow. Please do not hesitate to contact us with any questions or concerns.
Objective Data
Vital Signs
Temp Pulse Resp BP Pulse Ox
36.8 C 80 18 153/86 93
11/09/24 03:55 11/09/24 03:55 11/09/24 03:55 11/09/24 03:55 11/09/24 03:55
Lab Results
11/09/24 06:36
11/09/24 06:36
Sodium 137 mmol/L (135-145) 11/09/24 06:36
Potassium 4.6 mmol/L (3.5-5.1) 11/09/24 06:36
BUN 14 mg/dl (9-20) 11/09/24 06:36
Glucose 128 mg/dl (70-99) H 11/09/24 06:36
Calcium 10.1 mg/dl (8.4-10.2) 11/09/24 06:36
LDL Cholesterol, Calc 60 mg/dl 11/08/24 16:57
Vitamin B12 730 pg/ml (727-346) 11/08/24 14:29
Patient Allergies
No Known Allergies Allergy (Verified 11/08/24 09:24)
Vital Signs and Labs
-
Vital Signs and Labs:
Vital Signs
Temp Pulse Resp BP Pulse Ox
36.8 C 80 18 153/86 93
11/09/24 03:55 11/09/24 03:55 11/09/24 03:55 11/09/24 03:55 11/09/24 03:55
Lab Results
11/09/24 06:36
11/09/24 06:36
Sodium 137 mmol/L (135-145) 11/09/24 06:36
Potassium 4.6 mmol/L (3.5-5.1) 11/09/24 06:36
BUN 14 mg/dl (9-20) 11/09/24 06:36
Glucose 128 mg/dl (70-99) H 11/09/24 06:36
Calcium 10.1 mg/dl (8.4-10.2) 11/09/24 06:36
LDL Cholesterol, Calc 60 mg/dl 11/08/24 16:57
Vitamin B12 730 pg/ml (465-923) 11/08/24 14:29
Medications
-
Medications:
Generic Name Dose Route Start Last Admin
Trade Name Freq PRN Reason Stop Dose Admin
Acetaminophen 650 mg 11/08/24 14:14
Acetaminophen 325 Mg Tablet PO 12/06/24 14:13
DAILYPRN PRN
lower back apins
Aspirin 81 mg 03/27/25 08:00 11/09/24 08:42
Aspirin 81 Mg (Enteric Coated) Tablet PO 12/07/24 07:59 81 mg
DAILY TINA Administration
Cholecalciferol 50 mcg 11/09/24 08:00 11/09/24 08:42
Cholecalciferol (Vitamin D3) 50 Mcg Tablet (2,000 Units) PO 12/07/24 07:59 50 mcg
DAILY TINA Administration
Cyanocobalamin 1,000 mcg 11/09/24 08:00 11/09/24 08:42
Cyanocobalamin 1,000 Mcg Tablet PO 12/07/24 07:59 1,000 mcg
DAILY TINA Administration
Dextrose 12.5 grams 11/08/24 14:14
Dextrose 50% (0.5 Grams/Ml) 50 Ml Syringe IV 12/06/24 14:13
[id number] PRN
hypoglycemia
Protocol
Glucagon 1 mg 11/08/24 14:14
Glucagon 1 Mg Vial IM 12/06/24 14:13
PRN PRN
hypoglycemia
Protocol
Insulin Aspart 0 units 11/08/24 16:30 11/09/24 08:39
Insulin Aspart Low Resistance 300 Units/3 Ml Pen.Injctr SC 12/06/24 16:29 Not Given
AC TINA
Protocol
Home Medications
-
Home Medications
cholecalciferol (vitamin D3) 50 mcg (2,000 unit) capsule (Vitamin D3) 50 mcg PO DAILY 10/20/24
glipizide 5 mg tablet 5 mg PO DAILY 10/20/24
acetaminophen 325 mg tablet (Tylenol) 650 mg PO DAILYPRN PRN lower back apins 11/08/24
aspirin 81 mg tablet,delayed release 81 mg PO DAILY 11/08/24
cyanocobalamin (vitamin B-12) 1,000 mcg tablet 1,000 mcg PO DAILY 11/08/24
sildenafil 100 mg tablet 100 mg PO DAILYPRN PRN ed 11/08/24
[2024-11-09 10:19] LABS: Glycohemoglobin (HgbA1c) 6.6 % (4.0-5.6)
[2024-11-09 10:59] VITALS: BP 143/74
--- NOTE | 2024-11-09 11:32 | W.PN.HOSP.TC ---
Today's Communication/Plan
-
Monitor vital signs see plan
Check orthostatics
Possible discharge later today after evaluated by physical therapy
Assessment / Plan
Assessment / Plan
General: Well Developed, Well Nourished and No Apparent Distress
HEENT: NormoCephalic, Moist mucous membranes and Atraumatic
Respiratory: Clear
Cardiac: S1/S2 and Regular Rhythm; No Murmur or Rub
GI: Soft, Non Tender, Non Distended and Normal Bowel Sounds
Musculoskeletal: No Edema
Skin: No Rash
Neuro: Nonfocal/grossly intact
Recurrent vertigo episodes likely secondary to BPPV
Also has orthostatic hypotension, continue to monitor orthostatics. Teds
Now symptoms improved
# History of normal pressure hydrocephalus with LP in February
-Check orthostatic vital signs
-Check MRI brain without any CVA
Neurology following, okay for patient to be discharged
-Patient had LP in February
-neurosurgery previously recommended against shunt
History of prior CVA
-Continue aspirin
Type 2 diabetes
-Hold glipizide
-Insulin sliding scale
Essential hypertension
Hyperlipidemia
Daily alcohol use
Full code
DVT prophylaxis�SCDs
Anticipated Discharge: Today
Subjective/Interval History
-
Date of Service: November 09, 2024
denies pain, no dizziness
Objective Data
-
Labs:
Laboratory Results
11/09/24
06:36
WBC 4.7 L
Hgb 17.1
Hct 51.3
Plt Count 169
Sodium 137
Potassium 4.6
Chloride 104
Carbon Dioxide 27
BUN 14
Creatinine 0.6 L
Glucose 128 H
Calcium 10.1
Total Bilirubin 0.8
AST 39
ALT 49
Alkaline Phosphatase 52
Vital Signs:
Vital Signs
Temp Pulse Resp BP Pulse Ox
98.3 F 68 16 143/74 95
11/09/24 10:59 11/09/24 10:59 11/09/24 10:59 11/09/24 10:59 11/09/24 10:59
I&O
11/08/24 11/09/24 11/10/24
06:59 06:59 06:59
Intake Total 1320 / 1320
Balance 1320 / 1320
[2024-11-09 12:08] VITALS: BP 136/83; PULSE 81; O2SAT 95
[2024-11-09 12:34] VITALS: BP 134/81; BP 136/84; BP 142/76; PULSE 76; PULSE 80; PULSE 89
--- NOTE | 2024-11-09 13:16 | CM ---
Met with patient to obtain information for assessment. Patient stated that he lives in a single, one story home with his and no steps to enter. He described himself as independent with bathing, dressing, all ADLs and personal care. He can do
sociology faculty member, cook, clean and do laundry. He drives and can get to his appointments and go shopping. He has no DME. He has never had VN or been to a SNF.
Patient has a prescription plan and uses [facility] for all of his medications.
Patient's PCP is, Tiffanie Joseph.
Patient stated that his will transport him home. He does not feel he has any needs from . He signed IMM, it was reviewed and on chart.
Plan: Case management will continue to follow and assist with discharge planning. Home.
[2024-11-09 13:40] LABS: Syphilis/T. pallidum Ab Reflex Negative (Negative)
--- NOTE | 2024-11-09 13:47 | W.DCSUMMARY ---
Discharge Summary
Discharge Data
Date of Admission: 11/08/24
Date of Discharge: 11/09/24
-
Pending Results: No
Hospital Course
69-year-old male with past medical history of prior CVA, normal pressure hydrocephalus, type 2 diabetes mellitus, essential hypertension, lipidemia, alcohol use came to the hospital with recurrent vertigo which was likely thought was secondary to
BPPV. Patient also was initially positive for orthostatic hypotension secondary to mild dehydration which over time continue to improve. His latest vital signs were orthostatic negative. Patient symptoms resolved on its own. MRI was later done
which showed no acute CVA. Patient seen by neurology throughout hospitalization. Patient instructed to take meclizine as needed for vertigo per neurology recommendation. Patient was also eval by physical therapy prior to discharge. Once his
symptoms resolved, he was then discharged home with instructions to follow-up with all his physicians outpatient.
Discharge Plan
-
Patient Disposition: Home (Routine Discharge)
Discharge Diagnosis/Procedures: Recurrent vertigo likely secondary to benign paroxysmal positional vertigo
Orthostatic hypotension
History of CVA
Diet: As tolerated
Activity: As tolerated
Driving Restrictions: As prior to admission
Bathing Restrictions: None
Referrals:
Andrea Dunlap MD [Active] - in three to four weeks
Remigio Aaron DO [Family Provider] - in less than 1 week
Prescriptions:
New
meclizine 25 mg tablet
25 mg PO TID PRN (Reason: dizziness) Qty: 20 0RF
Continued
cholecalciferol (vitamin D3) [Vitamin D3] 50 mcg (2,000 unit) Capsule
50 mcg PO DAILY
glipizide 5 mg Tablet
5 mg PO DAILY
acetaminophen [Tylenol] 325 mg Tablet
650 mg PO DAILYPRN PRN (Reason: lower back pain )
cyanocobalamin (vitamin B-12) 1,000 mcg Tablet
1,000 mcg PO DAILY
aspirin 81 mg Tablet,Delayed Release (Dr/Ec)
81 mg PO DAILY
sildenafil 100 mg Tablet
100 mg PO DAILYPRN PRN (Reason: ed)
Discharge Orders:
Discharge Patient (As Directed); Ordered 11/09/24
Ordered By: Van Valerio
Discharge Date and Time
Discharge Date/Time: 11/09/24 14:20
Print Language: PASHTO
[2024-11-10 12:30] LABS: Lyme Antibody Screen, EIA Negative (Negative)
== END 2024-11-09 14:20 | disposition home or self-care (01) | DRG 149 ==
LOC: 3 WEST ACU 12:41
PROVIDERS: Physician Assistant; ADMITTING PHYSICIAN Hospitalist; ATTENDING PHYSICIAN Internal Medicine; CONSULT PHYSICIAN Psychiatry & Neurology Neurology; EMERGENCY PHYSICIAN Emergency Medicine; FAMILY PHYSICIAN Family Medicine
DX: H81.10 Benign paroxysmal vertigo, unspecified ear (principal); G93.40 Encephalopathy, unspecified; I95.1 Orthostatic hypotension; E86.0 Dehydration; Z86.73 Personal history of transient ischemic attack (TIA), and cerebral infarction without residual deficits; E78.00 Pure hypercholesterolemia, unspecified; E11.40 Type 2 diabetes mellitus with diabetic neuropathy, unspecified; I10 Essential (primary) hypertension; Z79.84 Long term (current) use of oral hypoglycemic drugs; Z79.82 Long term (current) use of aspirin; G93.89 Other specified disorders of brain; R32 Unspecified urinary incontinence; N40.1 Benign prostatic hyperplasia with lower urinary tract symptoms; Z80.0 Family history of malignant neoplasm of digestive organs
CPT/HCPCS: 70450; 70551; 80053; 80061; 81003; 82607; 82962; 83036; 84155; 84165; 84425; 84443; 84484; 85025; 86618; 86780; 93005; 97162; 99285

== ENCOUNTER → 2025-01-09 10:44 | Outpatient (REF) | payer MEDICARE, BC, SELFPAY | LOC: HWRAD 10:44 | PROVIDERS: ATTENDING PHYSICIAN Family Medicine | DX: M54.50 Low back pain, unspecified (principal) | CPT/HCPCS: 72110 ==

== ENCOUNTER → 2025-02-22 09:51 | Outpatient (REF) | payer MEDICARE, BC, SELFPAY | LOC: EMG 09:51 | PROVIDERS: ATTENDING PHYSICIAN Psychiatry & Neurology Neurology; FAMILY PHYSICIAN Family Medicine | DX: M54.16 Radiculopathy, lumbar region (principal); R20.0 Anesthesia of skin | CPT/HCPCS: 95886; 95910 ==

== ENCOUNTER → 2025-03-04 09:40 | Outpatient (REF) | payer MEDICARE, BC, SELFPAY | LOC: MRI 3T 09:40 | PROVIDERS: ATTENDING PHYSICIAN Psychiatry & Neurology Neurology; FAMILY PHYSICIAN Family Medicine | DX: M54.16 Radiculopathy, lumbar region (principal) | CPT/HCPCS: 72148 ==

== ENCOUNTER → 2025-05-30 11:31 | Outpatient (REF) | payer MEDICARE, BC, SELFPAY | LOC: HWRCS 11:31 | PROVIDERS: ATTENDING PHYSICIAN Internal Medicine Cardiovascular Disease; FAMILY PHYSICIAN Family Medicine | DX: I63.9 Cerebral infarction, unspecified (principal) | CPT/HCPCS: 93306 ==